=== PATIENT | female | born 1945 | race Caucasian/White ===

== ENCOUNTER 2020-12-31 14:59 | Emergency (ER) | payer MEDICARE ==
[~2020-12-31 14:59] MED LIST: ANTIVERT12.5 MG PO; MUCINEX DM ER1 EAC1 PO; VIBRAMYCIN100 MG PO; ZOFRAN4 MG PO
[2020-12-31 18:39] LABS: BASOPHIL 0.1 % (0-2); EOSINOPHIL 0.2 % (0-7); HCT 40.7 % (37.0-47.0); HGB 13.6 g/dl (12.5-16.0); LYMPHOCYTE 14.9 % (15-48); MCH 32.9 pg (25.0-31.0); MCHC 33.4 g/dL (32.0-36.0); MCV 98.5 fL (78.0-100.0); MONOCYTE 2.9 % (0-12); MPV 9.6 fL (6.0-9.5); NEUTROPHIL 81.5 % (41-80); NRBC 0; PLT 165 K/uL (150-400); RBC 4.13 M/uL (4.20-5.40); RDW 12.7 % (11.5-14.0); WBC 9.3 K/uL (4.0-10.5)
[2020-12-31 18:49] LABS: INR 0.92 (0.9-1.2); PROTHROMBIN TIME 11.7 SECONDS (11.4-13.6); PTT 24.1 SECONDS (22.2-34.7)
[2020-12-31 18:59] LABS: LACTIC ACID 3.4 mmol/L (0.4-1.9)
[2020-12-31 19:02] LABS: PRO-BNP 166 pg/mL (<125)
[2020-12-31 19:08] LABS: ALBUMIN 3.2 g/dL (3.4-5.0); BILIRUBIN - TOTAL 0.2 mg/dL (0.2-1.0); BUN/CREAT RATIO (CALC) 31.2 RATIO; CREATININE 0.64 mg/dL (0.51-0.95); GLOBULIN (CALCULATION) 4.2 g/dL; POTASSIUM 4.3 mmol/L (3.5-5.1); TOTAL PROTEIN 7.4 g/dL (6.4-8.2)
[2020-12-31 19:33] LABS: CORONAVIRUS 2019 SARS-COV-2 NEGATIVE (NEGATIVE); INFLUENZA A NAA NEGATIVE (NEGATIVE)
[2020-12-31] MEDS ORDERED: VENTOLIN HFA IN18 GM INH (21:45)
[2020-12-31] MEDS ORDERED: TESSALON PERLE100 M1 PO (21:45)
[2020-12-31] MEDS ORDERED: LEVAQUIN750 MG PO (21:45)
[2020-12-31] MEDS ORDERED: MEDROL 4MG DOSEP4 MG PO (21:45)
== END 2020-12-31 21:57 | disposition home or self-care (01) ==
LOC: FER 14:59
PROVIDERS: Emergency Medicine
DX: J18.9 Pneumonia, unspecified organism (principal); J84.10 Pulmonary fibrosis, unspecified; R42 Dizziness and giddiness; R00.0 Tachycardia, unspecified; E11.9 Type 2 diabetes mellitus without complications; I10 Essential (primary) hypertension; Z88.5 Allergy status to narcotic agent; Z20.822 Contact with and (suspected) exposure to COVID-19
CPT/HCPCS: 36415; 36600; 71250; 80053; 82803; 83605; 83880; 84145; 84484; 85025; 85379; 85610; 85730; 87040; 93005; 94640; 94664; U0002

== ENCOUNTER 2021-01-27 12:31 | Emergency (ER) | payer MEDICARE ==
[~2021-01-27 12:31] MED LIST changes: +LEVAQUIN750 MG PO; +MEDROL 4MG DOSEP4 MG PO; +TESSALON PERLE100 M1 PO; +VENTOLIN HFA IN18 GM INH
[2021-01-27 13:54] LABS: BASOPHIL 0.1 % (0-2); EOSINOPHIL 0.5 % (0-7); HCT 37.9 % (37.0-47.0); LYMPHOCYTE 13.8 % (15-48); MCH 32.7 pg (25.0-31.0); MCHC 34.3 g/dL (32.0-36.0); MCV 95.2 fL (78.0-100.0); MONOCYTE 4.9 % (0-12); MPV 9.5 fL (6.0-9.5); NRBC 0; PLT 139 K/uL (150-400); RBC 3.98 M/uL (4.20-5.40); RDW 13.2 % (11.5-14.0); WBC 8.4 K/uL (4.0-10.5)
[2021-01-27 14:19] LABS: ALBUMIN 2.7 g/dL (3.4-5.0); BILIRUBIN - TOTAL 0.8 mg/dL (0.2-1.0); BUN/CREAT RATIO (CALC) 26.9 RATIO; CREATININE 0.67 mg/dL (0.51-0.95); GLOBULIN (CALCULATION) 3.9 g/dL; TOTAL PROTEIN 6.6 g/dL (6.4-8.2)
[2021-01-27 14:29] LABS: LACTIC ACID 1.2 mmol/L (0.4-1.9)
[2021-01-27 15:30] LABS: BILIRUBIN NEGATIVE (NEGATIVE); BLOOD NEGATIVE Ery/uL (NEGATIVE); CLARITY CLEAR (CLEAR); COLOR YELLOW (YELLOW); GLUCOSE (U) NORMAL (NORMAL); LEUKOCYTES 1+ Leu/uL (NEGATIVE); NITRITE NEGATIVE (NEGATIVE); PROTEIN TRACE (LOW) mg/dL (NEGATIVE); pH 7.5 (5.0-9.0)
[2021-01-27 15:36] LABS: BACTERIA 1+; URINARY WBC 20-50
[2021-01-27 16:09] LABS: CORONAVIRUS 2019 SARS-COV-2 NEGATIVE (NEGATIVE); INFLUENZA A NAA NEGATIVE (NEGATIVE)
== END 2021-01-27 16:55 | disposition home or self-care (01) ==
LOC: FER 12:31
PROVIDERS: Emergency Medicine
DX: R53.81 Other malaise (principal); R53.83 Other fatigue; R60.0 Localized edema; I10 Essential (primary) hypertension; Z20.822 Contact with and (suspected) exposure to COVID-19; Z87.09 Personal history of other diseases of the respiratory system; Z88.5 Allergy status to narcotic agent; Z88.8 Allergy status to other drugs, medicaments and biological substances
CPT/HCPCS: 36415; 71045; 80053; 81001; 82150; 82550; 83605; 83880; 84145; 84484; 85025; 87040; 87088; U0002

== ENCOUNTER 2021-04-20 15:01 | Emergency (ER) | payer MEDICARE ==
[2021-04-20] MEDS ORDERED: NORCO 5-325 TA1 EACH PO (17:54)
== END 2021-04-20 20:05 | disposition home or self-care (01) ==
LOC: FER 15:01
DX: S32.019A Unspecified fracture of first lumbar vertebra, initial encounter for closed fracture (principal); S32.029A Unspecified fracture of second lumbar vertebra, initial encounter for closed fracture; I10 Essential (primary) hypertension; E11.9 Type 2 diabetes mellitus without complications; Z88.5 Allergy status to narcotic agent; W01.0XXA Fall on same level from slipping, tripping and stumbling without subsequent striking against object, initial encounter; Y92.009 Unspecified place in unspecified non-institutional (private) residence as the place of occurrence of the external cause
CPT/HCPCS: 72128; 72131

== ENCOUNTER 2021-09-18 01:30 | Emergency (ER) | payer MEDICARE ==
[~2021-09-18 01:30] MED LIST changes: +NORCO 5-325 TA1 EACH PO
[2021-09-18 03:10] LABS: ALBUMIN 3.1 g/dL (3.4-5.0); BILIRUBIN - TOTAL 0.3 mg/dL (0.2-1.0); BUN/CREAT RATIO (CALC) 23.1 RATIO; CREATININE 0.78 mg/dL (0.51-0.95); GLOBULIN (CALCULATION) 3.9 g/dL; POTASSIUM 3.4 mmol/L (3.5-5.1)
[2021-09-18 03:12] LABS: BASOPHIL 0.4 % (0-2); EOSINOPHIL 0 % (0-7); HCT 36.1 % (37.0-47.0); LYMPHOCYTE 19.5 % (15-48); MCH 32.8 pg (25.0-31.0); MCHC 33.2 g/dL (32.0-36.0); MCV 98.6 fL (78.0-100.0); MONOCYTE 18.1 % (0-12); MPV 10.1 fL (6.0-9.5); NRBC 0; PLT 137 K/uL (150-400); RBC 3.66 M/uL (4.20-5.40); RDW 12.5 % (11.5-14.0); WBC 2.3 K/uL (4.0-10.5)
[2021-09-18 06:28] LABS: BILIRUBIN NEGATIVE (NEGATIVE); BLOOD NEGATIVE Ery/uL (NEGATIVE); CLARITY CLEAR (CLEAR); COLOR YELLOW (YELLOW); GLUCOSE (U) NORMAL (NORMAL); LEUKOCYTES 1+ Leu/uL (NEGATIVE); NITRITE NEGATIVE (NEGATIVE); PROTEIN NEGATIVE (NEGATIVE); UROBILINOGEN 0.2 mg/dL (0.2-1.0)
[2021-09-19] MEDS ORDERED: VIBRAMYCIN100 MG PO (06:36)
[2021-09-19] MEDS ORDERED: NORCO 5-325 TA1 EACH PO (06:36)
[2021-09-19 07:00] LABS: BUN/CREAT RATIO (CALC) 18.4 RATIO; CREATININE 0.76 mg/dL (0.51-0.95); POTASSIUM 3.9 mmol/L (3.5-5.1)
== END 2021-09-19 13:35 | disposition home or self-care (01) ==
LOC: FER 01:30
PROVIDERS: Emergency Medicine; Emergency Medicine Emergency Medical Services
DX: U07.1 COVID-19 (principal); E10.649 Type 1 diabetes mellitus with hypoglycemia without coma; E78.5 Hyperlipidemia, unspecified; Z79.84 Long term (current) use of oral hypoglycemic drugs; Z79.899 Other long term (current) drug therapy
CPT/HCPCS: 36415; 36600; 71045; 80048; 80053; 81001; 82803; 84443; 84484; 85025; 85379; 87088; 93005; 93970; U0002

== ENCOUNTER 2021-10-06 23:11 | Emergency (ER) | payer MEDICARE ==
[2021-10-07 00:36] LABS: INFLUENZA A NAA NEGATIVE (NEGATIVE)
[2021-10-07 00:39] LABS: CORONAVIRUS 2019 SARS-COV-2 POSITIVE (NEGATIVE)
[2021-10-07 00:47] LABS: BASOPHIL 0.2 % (0-2); EOSINOPHIL 0.1 % (0-7); HCT 34.4 % (37.0-47.0); HGB 11.7 g/dl (12.5-16.0); LYMPHOCYTE 7.9 % (15-48); MCH 32.8 pg (25.0-31.0); MCV 96.4 fL (78.0-100.0); MONOCYTE 9.1 % (0-12); MPV 9.9 fL (6.0-9.5); NEUTROPHIL 82.3 % (41-80); NRBC 0; PLT 151 K/uL (150-400); RBC 3.57 M/uL (4.20-5.40); RDW 12.4 % (11.5-14.0)
[2021-10-07 00:53] LABS: BILIRUBIN NEGATIVE (NEGATIVE); BLOOD TRACE-INTACT Ery/uL (NEGATIVE); COLOR YELLOW (YELLOW); GLUCOSE (U) NORMAL (NORMAL); LEUKOCYTES 3+ Leu/uL (NEGATIVE); NITRITE NEGATIVE (NEGATIVE); PROTEIN NEGATIVE (NEGATIVE); SPECIFIC GRAVITY 1.015 (1.001-1.030); UROBILINOGEN 0.2 mg/dL (0.2-1.0)
[2021-10-07 00:59] LABS: CLARITY HAZY (CLEAR)
[2021-10-07 01:01] LABS: BACTERIA 4+; URINARY WBC 20-50
[2021-10-07 01:01] LABS: BILIRUBIN - TOTAL 0.8 mg/dL (0.2-1.0); BUN/CREAT RATIO (CALC) 22.9 RATIO; CREATININE 0.96 mg/dL (0.51-0.95); GLOBULIN (CALCULATION) 4.2 g/dL; POTASSIUM 3.8 mmol/L (3.5-5.1); TOTAL PROTEIN 7.2 g/dL (6.4-8.2)
[2021-10-07 01:28] LABS: LACTIC ACID 1.3 mmol/L (0.4-1.9)
[2021-10-07] MEDS ORDERED: ONDANSETRON ODT4 MG PO (04:35)
[2021-10-07] MEDS ORDERED: MACROBID100 MG PO (04:35)
== END 2021-10-07 05:45 | disposition home or self-care (01) ==
LOC: FER 23:11
PROVIDERS: Emergency Medicine
DX: N39.0 Urinary tract infection, site not specified (principal); U07.1 COVID-19; K57.30 Diverticulosis of large intestine without perforation or abscess without bleeding; E11.9 Type 2 diabetes mellitus without complications; Z79.4 Long term (current) use of insulin
CPT/HCPCS: 36415; 71275; 80053; 81001; 83605; 83690; 84145; 85025; 87040; 87076; 87088; 87186; J2543; J7030; Q9967; U0002

== ENCOUNTER 2021-10-13 16:51 | Emergency (ER) | payer MEDICARE ==
[~2021-10-13 16:51] MED LIST changes: +MACROBID100 MG PO; +ONDANSETRON ODT4 MG PO
[2021-10-13 18:20] LABS: BASOPHIL 0.2 % (0-2); EOSINOPHIL 2.4 % (0-7); HCT 34.4 % (37.0-47.0); HGB 11.7 g/dl (12.5-16.0); MCH 32.5 pg (25.0-31.0); MCV 95.6 fL (78.0-100.0); MPV 10.1 fL (6.0-9.5); NEUTROPHIL 72.9 % (41-80); NRBC 0; PLT 199 K/uL (150-400); RDW 12.4 % (11.5-14.0); WBC 8.3 K/uL (4.0-10.5)
[2021-10-13 18:43] LABS: BUN/CREAT RATIO (CALC) 14.5 RATIO; CREATININE 0.76 mg/dL (0.51-0.95); POTASSIUM 3.9 mmol/L (3.5-5.1)
[2021-10-13 18:48] LABS: LACTIC ACID 1.2 mmol/L (0.4-1.9)
[2021-10-13 20:18] LABS: BILIRUBIN NEGATIVE (NEGATIVE); BLOOD NEGATIVE Ery/uL (NEGATIVE); CLARITY CLEAR (CLEAR); COLOR YELLOW (YELLOW); GLUCOSE (U) NORMAL (NORMAL); LEUKOCYTES 1+ Leu/uL (NEGATIVE); NITRITE NEGATIVE (NEGATIVE); PROTEIN NEGATIVE (NEGATIVE); UROBILINOGEN 0.2 mg/dL (0.2-1.0); pH 5.5 (5.0-9.0)
[2021-10-13 20:27] LABS: BACTERIA TRACE; SQUAMOUS EPITHELIAL CELLS RARE
[2021-10-13] MEDS ORDERED: CIPRO500 MG PO (21:38)
== END 2021-10-13 22:22 | disposition home or self-care (01) ==
LOC: FER 16:51
PROVIDERS: Nurse Practitioner Family
DX: J90 Pleural effusion, not elsewhere classified (principal); N39.0 Urinary tract infection, site not specified; I10 Essential (primary) hypertension; J45.909 Unspecified asthma, uncomplicated; E11.40 Type 2 diabetes mellitus with diabetic neuropathy, unspecified; Z88.5 Allergy status to narcotic agent
CPT/HCPCS: 36415; 71045; 71275; 80048; 81001; 83605; 83880; 84145; 84484; 85025; 85379; 87088; 93005; J7030; Q9967

== ENCOUNTER 2022-02-21 15:56 | Emergency (ER) | payer MEDICARE ==
[~2022-02-21 15:56] MED LIST changes: +CIPRO500 MG PO
[2022-02-21 17:30] LABS: BASOPHIL 0.4 % (0-2); EOSINOPHIL 4.2 % (0-7); HGB 12.5 g/dl (12.5-16.0); LYMPHOCYTE 24.3 % (15-48); MCH 32.7 pg (25.0-31.0); MCHC 32.9 g/dL (32.0-36.0); MCV 99.5 fL (78.0-100.0); MONOCYTE 8.4 % (0-12); MPV 10.4 fL (6.0-9.5); NEUTROPHIL 62.5 % (41-80); NRBC 0; PLT 145 K/uL (150-400); RBC 3.82 M/uL (4.20-5.40); RDW 12.7 % (11.5-14.0); WBC 5.5 K/uL (4.0-10.5)
[2022-02-21 17:57] LABS: ALBUMIN 3.4 g/dL (3.4-5.0); BILIRUBIN - TOTAL 0.7 mg/dL (0.2-1.0); BUN/CREAT RATIO (CALC) 24.4 RATIO; CREATININE 0.86 mg/dL (0.51-0.95); POTASSIUM 4.6 mmol/L (3.5-5.1); TOTAL PROTEIN 7.4 g/dL (6.4-8.2)
[2022-02-21 18:08] LABS: BILIRUBIN NEGATIVE (NEGATIVE); BLOOD TRACE-INTACT Ery/uL (NEGATIVE); CLARITY CLEAR (CLEAR); COLOR YELLOW (YELLOW); GLUCOSE (U) NORMAL (NORMAL); LEUKOCYTES 3+ Leu/uL (NEGATIVE); NITRITE NEGATIVE (NEGATIVE); PROTEIN NEGATIVE (NEGATIVE); UROBILINOGEN 0.2 mg/dL (0.2-1.0)
[2022-02-21 18:15] LABS: BACTERIA 1+; SQUAMOUS EPITHELIAL CELLS 20-50; STARCH GRANULES PRESENT
[2022-02-21] MEDS ORDERED: CEPHALEXIN500 MG PO (18:47)
[2022-02-21] MEDS ORDERED: ONDANSETRON ODT4 MG PO (18:47)
== END 2022-02-21 19:24 | disposition home or self-care (01) ==
LOC: FER 15:56
PROVIDERS: Emergency Medicine
DX: N39.0 Urinary tract infection, site not specified (principal); R42 Dizziness and giddiness; S30.0XXA Contusion of lower back and pelvis, initial encounter; L89.151 Pressure ulcer of sacral region, stage 1; I10 Essential (primary) hypertension; E11.9 Type 2 diabetes mellitus without complications; Z88.5 Allergy status to narcotic agent; W19.XXXA Unspecified fall, initial encounter; Y92.009 Unspecified place in unspecified non-institutional (private) residence as the place of occurrence of the external cause
CPT/HCPCS: 36415; 70450; 71045; 80053; 81001; 84484; 85025; 93005; J2405